=== PATIENT | male | born 1960 | race Caucasian/White ===

== ENCOUNTER 2018-01-17 08:15 | Day surgery (SDC) | payer BC ==
[2018-01-12 11:02] LABS: Urine WBC None Seen /hpf (0 - 3)
[2018-01-12 11:11] LABS: Basophils # (auto) 0 uL; Eosinophils # (auto) 0.1 uL; Eosinophils % (auto) 1.3 % (0.0-7.0); Hematocrit 38.9 % (41.0-53.0); Hemoglobin 13.3 g/dL (13.5-17.5); Lymphocytes # (auto) 1.6 uL; Lymphocytes % (auto) 41.9 % (10.0-50.0); Mean Corpuscular Hemoglobin 32.6 pg (28.0-32.0); Mean Corpuscular Hgb Conc. 34.3 g/dL (32.0-36.0); Mean Corpuscular Volume 95.1 fL (80.0-100.0); Monocytes # (auto) 0.4 uL; Monocytes % (auto) 10.4 % (0.0-12.0); Neutrophils # (auto) 1.8 uL; Neutrophils % (auto) 45.4 % (37.0-80.0); Nucleated Red Blood Cells % 0.1 %; Platelet Count (auto) 214 10^3/uL (140-450); Red Blood Cells 4.09 10^6/uL (4.5-5.90); Red Cell Distribution Width 13.5 % (11.8-14.3); White Blood Cell 3.9 10^3/uL (4.4-10.8)
[2018-01-12 11:19] LABS: Urine Bacteria NONE SEEN /hpf (None Seen); Urine Blood Negative /uL (Negative); Urine Specific Gravity 1.005 (1.001-1.035)
[2018-01-12 11:20] LABS: Partial Thromboplastin Time 27.2 sec (23.78-33.04); Prothrombin Time 10.7 sec (9.27-12.13)
[2018-01-12 11:30] LABS: Albumin 3.8 g/dL (3.4-5.0); Bilirubin, Total 0.2 mg/dL (0.2-1.0); Calcium 8.4 mg/dL (8.5-10.1); Potassium 3.6 mmol/L (3.5-5.1); Total Protein 7.4 g/dL (6.4-8.2)
[~2018-01-17] VITALS: Ht 177.8 cm; Wt 83.0 kg
[~2018-01-17 08:15] MED LIST: HYDR25TA4 PO; SIMV-8 PO
[2018-01-17] MEDS ORDERED: ceFAZolin 1GM/100ML 100 ML IV ONE (09:42)
[2018-01-17] MEDS ORDERED: ONDANSETRON HCL 4 MG/2 ML VIAL ONE (12:10)
[2018-01-17] MEDS ORDERED: PROPOFOL 10 MG/ML 20 ML IV ONE (12:10)
[2018-01-17] MEDS ORDERED: SODIUM CHLORIDE LOCK 10 ML ONE (12:10)
[2018-01-17] MEDS ORDERED: MIDAZOLAM HCL 1MG/1ML-2 ML VIAL ONE (12:10)
[2018-01-17] MEDS ORDERED: fentaNYL CITRATE 100 MCG/2 ML VL ONE (12:10)
[2018-01-17] MEDS ORDERED: BUPIVACAINE 0.75% INJ 10ML MPV SDV IJ ONE (12:36)
[2018-01-17] MEDS ORDERED: KETOROLAC TROMETH 30 MG/ML 1ML VIAL IV ONE (13:00)
[2018-01-17] MEDS ORDERED: METOCLOPRAMIDE HCL 5MG/ml INJ 2ml VIAL IV ONE (13:00)
[2018-01-17] MEDS ORDERED: HYDROmorphone HCL 2 MG/ML VL IV PRN (13:00)
[2018-01-17 14:22] VITALS: BP 126/51
== END 2018-01-17 14:32 | disposition home or self-care (01) ==
LOC: SUR 08:15 → MERGE 08:15 → SUR 14:32
PROVIDERS: ATTEND Podiatrist Foot & Ankle Surgery
DX: M20.11 Hallux valgus (acquired), right foot (principal); M21.611 Bunion of right foot; M19.071 Primary osteoarthritis, right ankle and foot; M25.774 Osteophyte, right foot; I10 Essential (primary) hypertension; N28.9 Disorder of kidney and ureter, unspecified; E66.9 Obesity, unspecified; Z79.899 Other long term (current) drug therapy; Z86.73 Personal history of transient ischemic attack (TIA), and cerebral infarction without residual deficits
CPT/HCPCS: 28296; 36415; 73620; 80053; 81001; 85025; 85610; 85730; C1769; J0690; J2250; J2405; J2704; J3010; J3490

== ENCOUNTER 2018-10-07 11:39 | Inpatient (IN) | payer BC, OTHER ==
[~2018-10-07] VITALS: Ht 177.8 cm; Wt 80.7 kg
[2018-10-07] MEDS ORDERED: SODIUM CHLORIDE 0.9% 1,000 ML IV ONE (13:05)
[2018-10-07] MEDS ORDERED: HYDROmorphone HCL 2 MG/ML VL IV ONE ×2 (13:15→15:45)
[2018-10-07] MEDS ORDERED: PROMETHAZINE HCL 25 MG/ML 1ML ONE (13:17)
[2018-10-07] MEDS: PROMETHAZINE HCL 25 MG/ML 1ML IV PRN (14:30)
[2018-10-07 14:37] LABS: Basophils # (auto) 0 uL; Basophils % (auto) 0.2 % (0.0-2.0); Eosinophils # (auto) 0 uL; Hematocrit 43.7 % (41.0-53.0); Hemoglobin 14.3 g/dL (13.5-17.5); Lymphocytes # (auto) 0.9 uL; Lymphocytes % (auto) 7.4 % (10.0-50.0); Mean Corpuscular Hemoglobin 31.9 pg (28.0-32.0); Mean Corpuscular Hgb Conc. 32.7 g/dL (32.0-36.0); Mean Corpuscular Volume 97.4 fL (80.0-100.0); Monocytes # (auto) 0.7 uL; Monocytes % (auto) 5.8 % (0.0-12.0); Neutrophils # (auto) 10.3 uL; Neutrophils % (auto) 86.6 % (37.0-80.0); Platelet Count (auto) 219 10^3/uL (140-450); Red Blood Cells 4.49 10^6/uL (4.5-5.90); Red Cell Distribution Width 13.8 % (11.8-14.3); White Blood Cell 11.9 10^3/uL (4.4-10.8)
[2018-10-07 15:17] LABS: Albumin 3.8 g/dL (3.4-5.0); Anion Gap 17 (5-15); Aspartate Aminotransferase 45 U/L (15-37); BUN/Creatinine Ratio 13.6; Blood Urea Nitrogen 11 mg/dL (7-18); Calcium 8.3 mg/dL (8.5-10.1); Carbon Dioxide 16 mmol/L (21-32); Chloride 109 mmol/L (98-107); GFR African American 127 mL/min; GFR Non-African American 105 mL/min; Glucose 108 mg/dL (74-106); Potassium 3.3 mmol/L (3.5-5.1); Sodium 142 mmol/L (136-145)
[2018-10-07 15:22] LABS: Alanine Aminotransferase 49 U/L (16-61); Alkaline Phosphatase 40 U/L (45-117); Bilirubin, Total 0.4 mg/dL (0.2-1.0); Total Protein 7.6 g/dL (6.4-8.2)
[2018-10-07] MEDS ORDERED: PROMETHAZINE HCL 25 MG/ML 1ML IV ONE (15:45)
[2018-10-07 16:17] LABS: Magnesium 1.7 mg/dL (1.6-2.6)
[2018-10-07] MEDS ORDERED: PROMETHAZINE HCL 25 MG/ML 1ML IV PRN (17:00)
[2018-10-07] MEDS ORDERED: NITROGLYCERIN 0.4 MG SL TAB SL PRN (17:00)
[2018-10-07] MEDS ORDERED: MORPHINE SULFATE 4 MG/ML SYR/VIAL IV PRN ×2 (17:00)
[2018-10-07] MEDS ORDERED: PANTOPRAZOLE 40 MG/10 ML VIAL IV ONE (17:00)
[2018-10-07] MEDS ORDERED: THIAMINE 100mg/ml INJ (200mg/2ml VIAL) IV ONE (17:15)
[2018-10-07] MEDS ORDERED: chlordiazePOXIDE HCL 25 MG CAP PO PRN (17:15)
[2018-10-07] MEDS: cefTRIAXone 1GM/50ML D5W 50 ML IV SCH (17:26)
[2018-10-07] MEDS ORDERED: POTASSIUM EFFERVESENT TAB 25 MEQ PO ONE (17:30)
[2018-10-07] MEDS: SODIUM CHLORIDE 0.9% 1,000 ML IV SCH ×2 (17:48→22:17)
[2018-10-07] MEDS: POTASSIUM CHL 20MEQ/100ML 100 ML IV SCH ×2 (18:16→21:21)
[2018-10-07] MEDS ORDERED: FENO160T8 PO (18:23)
[2018-10-07] MEDS ORDERED: AMLO5TAB13 PO (18:23)
[2018-10-07] MEDS: chlordiazePOXIDE HCL 25 MG CAP PO SCH ×2 (18:54→23:34)
[2018-10-07] MEDS: MORPHINE SULFATE 4 MG/ML SYR/VIAL IV PRN ×4 (18:54→23:50)
[2018-10-07 19:13] LABS: Urine Bacteria NONE SEEN /hpf (None Seen); Urine Blood Negative /uL (Negative); Urine Mucus FEW (None Seen); Urine WBC <1 /hpf (0 - 3)
[2018-10-07 19:19] LABS: Amphetamine Screen, Urine NEGATIVE (NEGATIVE); Barbiturate Scree,Urine NEGATIVE (NEGATIVE); Benzodiazephine Screen, Urine NEGATIVE (NEGATIVE); Cannabinoid Screen, Urine NEGATIVE (NEGATIVE); Cocaine Screen, Urine NEGATIVE (NEGATIVE); Opiate Scree,Urine NEGATIVE (NEGATIVE); Phencyclidine Screen, Urine NEGATIVE (NEGATIVE)
[2018-10-07] MEDS: metroNIDAZOLE 500MG/100ML 100 ML IV SCH (22:17)
[2018-10-08 00:12] VITALS: BP 132/90
[2018-10-08] MEDS ORDERED: SIMV-13 PO (00:26)
[2018-10-08] MEDS ORDERED: OMEP20TA PO (00:26)
[2018-10-08] MEDS: LORazepam 2MG/ML-1ML VIAL IV PRN ×2 (00:39→09:12)
[2018-10-08] MEDS ORDERED: OME20T PO (02:56)
[2018-10-08] MEDS ORDERED: AMLO-412 PO (02:57)
[2018-10-08] MEDS: chlordiazePOXIDE HCL 25 MG CAP PO SCH (05:47)
[2018-10-08] MEDS: SODIUM CHLORIDE 0.9% 1,000 ML IV SCH (05:47)
[2018-10-08] MEDS: metroNIDAZOLE 500MG/100ML 100 ML IV SCH (05:53)
[2018-10-08 07:02] LABS: Basophils # (auto) 0 uL; Basophils % (auto) 0.3 % (0.0-2.0); Eosinophils # (auto) 0 uL; Lymphocytes # (auto) 0.5 uL; Mean Corpuscular Hemoglobin 33.7 pg (28.0-32.0); Mean Corpuscular Hgb Conc. 34.3 g/dL (32.0-36.0); Mean Corpuscular Volume 98.1 fL (80.0-100.0); Monocytes # (auto) 0.4 uL; Monocytes % (auto) 5.1 % (0.0-12.0); Neutrophils # (auto) 6.2 uL; Neutrophils % (auto) 87.6 % (37.0-80.0); Platelet Count (auto) 146 10^3/uL (140-450); Red Blood Cells 3.88 10^6/uL (4.5-5.90); White Blood Cell 7.1 10^3/uL (4.4-10.8)
[2018-10-08 07:06] LABS: BUN/Creatinine Ratio 11.4; Calcium 7.3 mg/dL (8.5-10.1); Potassium 3.3 mmol/L (3.5-5.1)
[2018-10-08 07:15] LABS: Bilirubin, Total 0.7 mg/dL (0.2-1.0)
[2018-10-08] MEDS: PROMETHAZINE HCL 25 MG/ML 1ML IV PRN (09:12)
[2018-10-08] MEDS: cefTRIAXone 1GM/50ML D5W 50 ML IV SCH (09:12)
[2018-10-08 09:30] VITALS: BP 131/68
[2018-10-08] MEDS ORDERED: THIAMINE 100mg/ml INJ (200mg/2ml VIAL) IV SCH (10:00)
[2018-10-08] MEDS ORDERED: PANTOPRAZOLE 40 MG/10 ML VIAL IV SCH (10:00)
--- NOTE | 2018-10-08 14:24 | NUR ---
assessment Patient left AMA prior to being assessed. Addendum: 10/09/18 at 0825 by Munira AVILES Amended: Links added.
== END 2018-10-08 14:08 | disposition left against medical advice (07) | DRG 439 ==
LOC: EDUNIT# 11:39 → ER 11:39 → TELE 16:58 → MERGE 16:58 → TELE 10-08 11:46
PROVIDERS: ADMIT Internal Medicine; ATTEND Internal Medicine
DX: K85.90 Acute pancreatitis without necrosis or infection, unspecified (principal); R65.10 Systemic inflammatory response syndrome (SIRS) of non-infectious origin without acute organ dysfunction; E87.6 Hypokalemia; I10 Essential (primary) hypertension; K29.80 Duodenitis without bleeding; K21.9 Gastro-esophageal reflux disease without esophagitis; K76.0 Fatty (change of) liver, not elsewhere classified; F10.20 Alcohol dependence, uncomplicated; Y90.0 Blood alcohol level of less than 20 mg/100 ml; E78.5 Hyperlipidemia, unspecified; Z53.21 Procedure and treatment not carried out due to patient leaving prior to being seen by health care provider; K80.20 Calculus of gallbladder without cholecystitis without obstruction; Z82.49 Family history of ischemic heart disease and other diseases of the circulatory system; Z98.1 Arthrodesis status
CPT/HCPCS: 36415; 71045; 74176; 76775; 80053; 80061; 80307; 81001; 82150; 83690; 83735; 84443; 84484; 85025; 93005; 96374; 96375; 96376; C9113; G0378; J0696; J3480; J3490

== ENCOUNTER 2019-03-26 15:59 | Emergency (ER) | payer BC ==
[~2019-03-26] VITALS: Ht 175.3 cm; Wt 79.4 kg
[~2019-03-26 15:59] MED LIST changes: +AMLO-412 PO; +FENO160T8 PO; +OME20T PO; +SIMV-13 PO
[2019-03-26 16:43] LABS: Basophils # (auto) 0 uL; Basophils % (auto) 0.3 % (0.0-2.0); Eosinophils # (auto) 0 uL; Eosinophils % (auto) 0.1 % (0.0-7.0); Hematocrit 42.3 % (41.0-53.0); Hemoglobin 14.1 g/dL (13.5-17.5); Lymphocytes # (auto) 0.9 uL; Lymphocytes % (auto) 7.7 % (10.0-50.0); Mean Corpuscular Hemoglobin 31.9 pg (28.0-32.0); Mean Corpuscular Hgb Conc. 33.4 g/dL (32.0-36.0); Mean Corpuscular Volume 95.4 fL (80.0-100.0); Monocytes # (auto) 0.6 uL; Monocytes % (auto) 4.9 % (0.0-12.0); Neutrophils # (auto) 10.5 uL; Platelet Count (auto) 245 10^3/uL (140-450); Red Blood Cells 4.43 10^6/uL (4.5-5.90); Red Cell Distribution Width 13.4 % (11.8-14.3); White Blood Cell 12.1 10^3/uL (4.4-10.8)
[2019-03-26 17:00] LABS: Alanine Aminotransferase 18 U/L (16-61); Albumin 3.6 g/dL (3.4-5.0); Amylase 109 U/L (25-115); Anion Gap 11 (5-15); Aspartate Aminotransferase 13 U/L (15-37); BUN/Creatinine Ratio 8.4; Blood Alcohol < 3.0 mg/dL (0-5); Blood Urea Nitrogen 7 mg/dL (7-18); Calcium 8.5 mg/dL (8.5-10.1); Carbon Dioxide 22 mmol/L (21-32); Chloride 103 mmol/L (98-107); GFR African American 123 mL/min; GFR Non-African American 101 mL/min; Glucose 108 mg/dL (74-106); Lipase 1204 U/L (73-393); Magnesium 1.9 mg/dL (1.6-2.6); Potassium 3.6 mmol/L (3.5-5.1); Sodium 136 mmol/L (136-145)
[2019-03-26 17:03] LABS: Alkaline Phosphatase 40 U/L (45-117); Bilirubin, Total 0.9 mg/dL (0.2-1.0); Total Protein 7.4 g/dL (6.4-8.2)
[2019-03-27 01:58] VITALS: BP 131/82
== END 2019-03-27 01:47 | disposition left against medical advice (07) ==
LOC: ER 15:59
DX: R10.12 Left upper quadrant pain (principal); Z53.21 Procedure and treatment not carried out due to patient leaving prior to being seen by health care provider
CPT/HCPCS: 36415; 80053; 80320; 82150; 83690; 83735; 84484; 85025

== ENCOUNTER → 2019-04-16 | Outpatient (CLI) | payer BC ==
[2019-04-16 12:08] LABS: Albumin 3.4 g/dL (3.4-5.0); Bilirubin, Direct 0.2 mg/dL (0-0.2)
[2019-04-16 12:10] LABS: Bilirubin, Total 0.6 mg/dL (0.2-1.0); Total Protein 7.6 g/dL (6.4-8.2)
[2019-04-16 12:11] LABS: % Iron Saturation 31.5 % (20-55)
== END | disposition home or self-care (01) ==
LOC: LAB 10:31
PROVIDERS: ATTEND Internal Medicine Gastroenterology
DX: K86.2 Cyst of pancreas (principal); R94.5 Abnormal results of liver function studies
CPT/HCPCS: 36415; 80076; 83540; 83550; 86038; 86225

== ENCOUNTER 2019-04-23 15:35 | Inpatient (IN) | payer BC | END 2019-04-26 18:20 | disposition home or self-care (01) | LOC: ER 15:35 → TELE 15:36 → TELE-WESTW 23:33 | PROC: 0W993ZZ Drainage of Right Pleural Cavity, Percutaneous Approach (ICD-10-PCS; principal; ~2019-04-23) | DX: K85.91 Acute pancreatitis with uninfected necrosis, unspecified (principal); J90 Pleural effusion, not elsewhere classified; J81.1 Chronic pulmonary edema; K86.3 Pseudocyst of pancreas; K20.9 Esophagitis, unspecified; E78.5 Hyperlipidemia, unspecified; I10 Essential (primary) hypertension; I70.90 Unspecified atherosclerosis ==